=== PATIENT | male | born 1935 | race Two or more races ===

== ENCOUNTER 2019-07-05 12:35 | Inpatient (IN) | payer MEDICARE, OTHER ==
[~2019-07-05] VITALS: Ht 162.6 cm; Wt 61.8 kg
[2019-07-05 13:15] LABS: BASOPHILS % 1.2 % (0.0-2.0); EOSINOPHILS % 1.6 % (0.0-5.0); HEMATOCRIT. 37.6 % (42.0-52.0); HEMOGLOBIN. 13.3 g/dL (14.0-18.0); LYMPHOCYTES % 37.4 % (20.0-50.0); MEAN CORPUSCULAR HEMOGLOBIN 30.9 pg (28.0-32.0); MEAN CORPUSCULAR VOLUME 87.6 fL (80.0-94.0); MEAN PLATELET VOLUME 7.5 fl (7.4-10.4); MONOCYTES % 6.9 % (2.0-8.0); NEUTROPHILS % 52.9 % (40.0-76.0); PLATELET 228 x1000/uL (130-400); RED CELL DISTRIBUTION WIDTH 14.2 % (11.6-14.6)
[2019-07-05 13:20] LABS: CHLORIDE 105 mEq/L (98-107)
[2019-07-05 13:27] LABS: ETHANOL BLOOD < 10 mg/dL
[2019-07-05 13:29] LABS: LDL CHOLESTEROL 120 mg/dL (5-100)
[2019-07-05] MEDS ORDERED: IOHEXOL-350 100 ML BOTTLE ONE (13:42)
[2019-07-05 16:28] LABS: CLARITY URINE CLEAR (CLEAR); COLOR URINE YELLOW (YELLOW); KETONES URINE NEGATIVE (NEGATIVE); LEUKOCYTE ESTERASE URINE NEGATIVE (NEGATIVE); NITRITE URINE NEGATIVE (NEGATIVE); OCCULT BLOOD URINE TRACE (NEGATIVE); PROTEIN URINE NEGATIVE (NEGATIVE); SPECIFIC GRAVITY URINE 1.035 (1.005-1.030); UROBILINOGEN URINE 0.2 E.U./dL (0.2-1.0)
[2019-07-05] MEDS ORDERED: ASPIRIN 81MG TABLET PO ONE (16:30)
[2019-07-05 16:40] LABS: *BARBITURATES SCREEN URINE NEGATIVE (NEGATIVE); *COCAINE SCREEN URINE NEGATIVE (NEGATIVE)
[2019-07-05 16:41] LABS: *AMPHETAMINES SCREEN URINE NEGATIVE (NEGATIVE); *BENZODIAZEPINES SCREEN URINE NEGATIVE (NEGATIVE); CANNABINOID URINE SCREEN NEGATIVE (NEGATIVE); METHADONE URINE SCREEN NEGATIVE (NEGATIVE); OPIATES URINE SCREEN NEGATIVE (NEGATIVE); PHENCYCLIDINE URINE SCREEN NEGATIVE (NEGATIVE)
[2019-07-05 21:00] VITALS: BP 148/65
[2019-07-05] MEDS ORDERED: ENOXAPARIN 40MG/0.4ML SYR SUBCUT SCH (21:15)
[2019-07-05] MEDS ORDERED: MAGNESIUM/ALUMINUM HYDROXIDE/SIMETHICONE 30ML UDC PO PRN (21:15)
[2019-07-05] MEDS ORDERED: NA PHOS,M-B/NA PHOS,DI-BA ENEMA 118ML PR PRN (21:15)
[2019-07-05] MEDS ORDERED: HYDROCODONE/ACETAMINOPHEN 10/325MG TABLET PO PRN (21:15)
[2019-07-05] MEDS ORDERED: CLONIDINE 0.1MG TABLET PO PRN (21:15)
[2019-07-05] MEDS ORDERED: MORPHINE SULFATE 2 MG/ML CPJ (NOT FOR IM USE) IV PRN (21:15)
[2019-07-05] MEDS ORDERED: GUAIFENESIN 200MG/10ML SUGAR FREE UDC PO PRN (21:15)
[2019-07-05] MEDS ORDERED: ONDANSETRON HCL 4MG/2ML INJ IV PRN (21:15)
[2019-07-05] MEDS ORDERED: ACETAMINOPHEN 325MG TABLET PO PRN (21:15)
[2019-07-05] MEDS ORDERED: IPRATROPIUM/ALBUTEROL 0.5-3(2.5)MG/3ML NEB HHN PRN (21:15)
[2019-07-05] MEDS ORDERED: DOCUSATE SODIUM 100MG CAPSULE PO PRN (21:15)
[2019-07-05] MEDS ORDERED: LORAZEPAM 2MG/ML CPJ IV PRN (21:15)
[2019-07-05] MEDS ORDERED: DIPHENHYDRAMINE 50MG/ML VIAL IV PRN (21:15)
[2019-07-05] MEDS ORDERED: HYDRALAZINE 20MG/ML VIAL IV PRN (21:15)
[2019-07-05 21:52] VITALS: BP 148/85
[2019-07-05 22:02] VITALS: BP 114/83
[2019-07-05] MEDS: SODIUM CHLORIDE 0.9% INJ 3ML FLUSH IVF SCH (23:23)
[2019-07-06] VITALS (13 sets, daily range): BP systolic 95–154; BP diastolic 49–84
[2019-07-06 00:53] LABS: CREATINE KINASE MB FRACTION 1.8 ng/mL (0.5-3.6)
[2019-07-06] MEDS: SODIUM CHLORIDE 0.9% INJ 3ML FLUSH IVF SCH ×3 (05:17→20:28)
[2019-07-06 08:00] LABS: BASOPHILS % 0.8 % (0.0-2.0); EOSINOPHILS % 2.5 % (0.0-5.0); HEMATOCRIT. 37.7 % (42.0-52.0); HEMOGLOBIN. 13.2 g/dL (14.0-18.0); LYMPHOCYTES % 40.5 % (20.0-50.0); MEAN CORPUSCULAR HEMOGLOBIN 30.7 pg (28.0-32.0); MEAN CORPUSCULAR VOLUME 87.6 fL (80.0-94.0); MEAN PLATELET VOLUME 7.9 fl (7.4-10.4); NEUTROPHILS % 48.2 % (40.0-76.0); PLATELET 205 x1000/uL (130-400); RED BLOOD CELL COUNT 4.31 mill/uL (4.7-6.1); RED CELL DISTRIBUTION WIDTH 14.4 % (11.6-14.6)
[2019-07-06 08:05] LABS: CHLORIDE 104 mEq/L (98-107)
[2019-07-06 08:13] LABS: LDL CHOLESTEROL 112 mg/dL (5-100)
[2019-07-06 08:14] LABS: CREATINE KINASE 227 IU/L (39-308)
[2019-07-06 08:16] LABS: HDL CHOLESTEROL 37 mg/dL (40-59)
[2019-07-06 08:18] LABS: CREATINE KINASE MB FRACTION 1.6 ng/mL (0.5-3.6)
[2019-07-06] MEDS: ASPIRIN 81MG EC TABLET PO SCH (08:45)
[2019-07-06] MEDS ORDERED: ENOXAPARIN 40MG/0.4ML SYR SUBCUT SCH (09:00)
[2019-07-06] MEDS: ENOXAPARIN 30MG/0.3ML SYR SUBCUT SCH (10:51)
[2019-07-06] MEDS: DOCUSATE SODIUM 100MG CAPSULE PO SCH (15:12)
[2019-07-06] MEDS: ATORVASTATIN CALCIUM 40MG TABLET PO SCH (20:28)
[2019-07-06] MEDS ORDERED: ATORVASTATIN CALCIUM 10MG TABLET PO SCH (21:00)
[2019-07-07] VITALS (12 sets, daily range): BP systolic 103–144; BP diastolic 62–76
[2019-07-07] MEDS: SODIUM CHLORIDE 0.9% INJ 3ML FLUSH IVF SCH ×3 (05:45→22:12)
[2019-07-07] MEDS: ASPIRIN 81MG EC TABLET PO SCH (08:12)
[2019-07-07] MEDS: ENOXAPARIN 30MG/0.3ML SYR SUBCUT SCH (08:13)
[2019-07-07] MEDS: DOCUSATE SODIUM 100MG CAPSULE PO SCH ×2 (08:13→17:24)
[2019-07-07 08:14] LABS: HEMATOCRIT 41.2 % (42.0-52.0); HEMOGLOBIN 14.1 g/dL (14.0-18.0); MEAN CORPUSCULAR HEMOGLOBIN 30.2 pg (28.0-32.0); MEAN CORPUSCULAR VOLUME 88.2 fL (80.0-94.0); PLATELET 210 x1000/uL (130-400); RED BLOOD CELL COUNT 4.67 mill/uL (4.7-6.1)
[2019-07-07 08:30] LABS: CHLORIDE 107 mEq/L (98-107)
[2019-07-07 09:18] LABS: T4 FREE 0.87 ng/dL (0.76-1.46)
[2019-07-07 17:29] LABS: CREATINE KINASE MB FRACTION 1.5 ng/mL (0.5-3.6)
[2019-07-07] MEDS: ATORVASTATIN CALCIUM 40MG TABLET PO SCH (22:10)
[2019-07-08] VITALS (7 sets, daily range): BP systolic 110–147; BP diastolic 60–69
[2019-07-08 00:31] LABS: CREATINE KINASE MB FRACTION 1.4 ng/mL (0.5-3.6)
[2019-07-08 06:13] LABS: CREATINE KINASE MB FRACTION 1.5 ng/mL (0.5-3.6)
[2019-07-08] MEDS: SODIUM CHLORIDE 0.9% INJ 3ML FLUSH IVF SCH (06:23)
[2019-07-08] MEDS: DOCUSATE SODIUM 100MG CAPSULE PO SCH (08:15)
[2019-07-08] MEDS: ENOXAPARIN 30MG/0.3ML SYR SUBCUT SCH (08:15)
[2019-07-08] MEDS: ASPIRIN 81MG EC TABLET PO SCH (08:15)
== END 2019-07-08 13:57 | disposition home health service (06) | DRG 69 ==
LOC: ER 12:35 → 3WST 17:13 → EDBEDREQ 17:18 → ENRESERV 20:22 → 3WST 07-07 09:51
PROVIDERS: ADMIT Internal Medicine; ATTEND Internal Medicine
DX: G45.9 Transient cerebral ischemic attack, unspecified (principal); I10 Essential (primary) hypertension; R00.1 Bradycardia, unspecified; E78.5 Hyperlipidemia, unspecified; E11.9 Type 2 diabetes mellitus without complications; I44.0 Atrioventricular block, first degree
CPT/HCPCS: 36415; 70496; 70551; 71045; 80048; 80061; 80305; 80320; 81003; 82550; 82553; 82962; 83036; 83721; 83880; 84439; 84443; 84484; 85027; 85379; 93005; 93306; 93880; 93970; 97116; 97162; 99285; J1650; Q9967; G0480